=== PATIENT | female | born 1990 | race African-American/Black ===

== ENCOUNTER 2020-08-05 19:24 | Emergency (ER) | payer OTHER ==
[2020-08-05 19:39] VITALS: BP 110/71; PULSE 76; TEMP 97; BMI 34.4
--- OUTSIDE RECORDS SUMMARY | 2020-08-05 19:52 | XMS ---
:1990 Author Organization [facility] Support Name Relationship Address Phone [address] [place] [address] KOKI DANIEL, AGUSTÍN FATHER [address] [phone] [place] [address] Re-disclosure Warning The records that you are about to access may contain information from federally- assisted alcohol or drug abuse programs. If such information is present, then the following federally mandated warning applies: This information has been disclosed to you from records protected by federal confidentiality rules (42 CFR part 2). The federal rules prohibit you from making any further disclosure of this information unless further disclosure is expressly permitted by the written consent of the person to whom it pertains or as otherwise permitted by 42 CFR part 2. A general authorization for the release of medical or other information is NOT sufficient for this purpose. The Federal rules restrict any use of the information to criminally investigate or prosecute any alcohol or drug abuse patient.The records that you are about to access may contain highly sensitive health information, the redisclosure of which is protected by Article 27-F of the [facility] Public Health law. If you continue you may haveaccess to information: Regarding HIV / AIDS; Provided by facilities licensed or operated by the [facility] Office of Mental Health; or Provided by the [facility] Office for People With Developmental Disabilities. If such information is present, then the following [facility] mandated warning applies: This information has been disclosed to you from confidential records which are protected by state law. State law prohibits you from making any further disclosure of this information without the specific written consent of the person to whom it pertains, or as otherwise permitted by law. Any unauthorized further disclosure in violation of state law may result in a fine or fpc sentence or both. A general authorization for the release of medical or other information is NOT sufficient authorization for further disclosure. Insurance Providers Payer name Policy type Policy ID Covered Covered constitution party's Policy P eduard / Coverage constitution party ID relationship to [employer] ormation type [employer] [id number]
[2020-08-05] MEDS ORDERED: ACETAMINOPHEN 1000 MG/100 ML VIAL (NON FORMULARY) IVPB ONE (20:33)
[2020-08-05] MEDS ORDERED: SODIUM CHLORIDE 1,000 ML IV STA (20:33)
[2020-08-05] MEDS ORDERED: ONDANSETRON 4 MG/2 ML VIAL IVPUSH ONE ×2 (20:33→22:46)
--- NOTE | 2020-08-05 20:40 | PDOC ---
History of Present Illness - General Chief Complaint: Pain Stated Complaint: ABDOMINAL PAIN Time Seen by Provider: 08/05/20 19:57 History Source: Patient Exam Limitations: No Limitations - History of Present Illness Travel History: No Initial Comments: 08/05/20 20:38 HISTORY OF PRESENT ILLNESS: 30-year-old female denies medical history presents emergency department for evaluation of left lower quadrant pain over the past 3 days. She reports the pain worsens with urination and radiates to her lower back. Patient was concerned for a urinary tract infection she went to urgent care today was told that her urine was not suggestive of an infection and was referred to the emergency department to rule out diverticulitis. Patient reports her last bowel movement was earlier today and it was a formed brown stool without any blood. Patient reports she did have blood-streaked diarrhea 3 days ago but has since had normal bowel movements. No recent travel or sick contacts. PAST MEDICAL HISTORY: Denies past medical history SURGICAL HISTORY: Denies ALLERGIES: No known drug allergies REVIEW OF SYSTEMS General/Constitutional: Denies fever or chills. Denies weakness, weight change. HEENT: Denies change in vision. Denies ear pain or discharge. Denies sore throat. Cardiovascular: Denies chest pain or shortness of breath. Respiratory: Denies cough, wheezing, or hemoptysis. Gastrointestinal: See HPI Genitourinary: Denies dysuria, frequency, or change in urination. Musculoskeletal: Denies joint or muscle swelling or pain. Denies neck or back pain. Skin and breasts: Denies rash or easy bruising. Neurologic: Denies headache, vertigo, loss of consciousness, or loss of sensation. Psychiatric: Denies depression or anxiety. Endocrine: Denies increased thirst. Denies abnormal weight change. Hematologic/Lymphatic: Denies anemia, easy bleeding, or history of blood clots. Allergic/Immunologic: Denies hives or skin allergy. Denies latex allergy. PHYSICAL EXAM General Appearance: Well-appearing, appropriately dressed. No apparent distress, no intoxication. Respiratory/Chest: Lungs CTAB. No shortness of breath, chest tenderness, respiratory distress, accessory muscle use. No crackles, rales, rhonchi, stridor, wheezing, dullness Cardiovascular: RRR. S1, S2. No JVD, murmur, bradycardia, tachycardia. Vascular Pulses: Dorsalis-Pedis (R): 2+, Dorsalis-Pedis (L): 2+ Gastrointestinal/Abdominal: Normal bowel sounds. Abdomen soft, non-distended. Left lower quadrant and left upper quadrant tenderness with guarding and without rebound tenderness. No organomegaly, pulsatile mass, hernia, hepatomegaly, splenomegaly. Lymphatic: No adenopathy, tenderness. Musculoskeletal/Extremities: Normal inspection. No CVA tenderness. No tenderness to extremities, pedal edema, swelling, erythema or deformity. Past History - Medical History Allergies/Adverse Reactions: Allergies Allergy/AdvReac Type Severity Reaction Status Date / Time No Known Allergies Allergy Verified 08/05/20 19:39 Home Medications: Ambulatory Orders NK [No Known Home Medication] 08/05/20 COPD: No - Reproductive History Is Patient Now?: No - Psycho-Social/Smoking History Smoking History: Never smoked *Physical Exam - Vital Signs Last Vital Signs Temp Pulse Resp BP Pulse Ox 97 F L 76 18 110/71 98 08/05/20 19:35 08/05/20 19:35 08/05/20 19:35 08/05/20 19:35 08/05/20 19:35 - Physical Exam Female Pelvic Exam: positive: normal external exam, cervical os closed, normal adnexa, other (IUD noted to be partially removed and displaced on visual inspection.). negative: CMT, discharge, Bartholin mass, adnexal tenderness ED Treatment Course - LABORATORY CBC & Chemistry Diagram: 08/05/20 20:40 08/05/20 20:40 - RADIOLOGY Radiology Studies Ordered: Category Date Time Status ABDOMEN & PELVIS CT WITH CONTR [CT] Stat CT Scan 08/05/20 20:34 Ordered Medical Decision Making - Medical Decision Making 08/05/20 20:40 A/P: 30-year-old woman with left lower quadrant pain for the past 3 days Physical exam is concerning for diverticulitis. Labs Urine Tylenol 1 g IV Zofran [address] of the abdomen and pelvis with IV contrast Reassess 08/05/20 23:49 CT scan is read by imaging on-call: Lung bases are unremarkable. No pleural effusions. The liver, gallbladder, pancreas, adrenal glands and spleen are unremarkable. No renal or urinary calculi. No AAA No evidence for diverticulitis, appendicitis, small bowel obstruction, free fluid or free air. Intrauterine device which appears to be rotated and low in position partially extended out of the cervix. IUD retrieval- performed with GREG Lennon present as investor relations associate. IUD removed without incident. Discharge home with [facility] follow-up for maintenance of contraception. I discussed the physical exam findings, ancillary test results and final diagnoses with the patient. I answered all of the patient's questions. The patient was satisfied with the care received and felt comfortable with the discharge plan and treatment plan. The patient will call their primary care physician within 24 hours to arrange follow-up and will return to the Emergency Department with any new, persistent or worsening symptoms. Portions of this note have been documented using voice recognition software. As a result, errors may occur in the business risk analyst process. Effort has been made to correct all grammatical and business risk analyst error, but some may have been missed which may produce sporadic inaccurate business risk analyst or nonsensical phrases. 08/06/20 00:02 Discharge - Discharge Information Problems reviewed: Yes Clinical Impression/Diagnosis: Intrauterine device (IUD) migration Qualifiers: Encounter type: initial encounter Qualified Code(s): T83.32XA - Displacement of intrauterine contraceptive device, initial encounter Condition: Stable Disposition: HOME - Admission No - Follow up/Referral - Patient Discharge Instructions Patient Printed Discharge Instructions: DI for Intrauterine Device Removal Additional Instructions: It is normal to expect some bleeding for the next few days. You should avoid sexual intercourse as you may become until you have a new IUD placed. You should follow-up with your DRUG ABUSE TREATMENT SPECIALIST for management of contraception Return to the ER for any new or worsening symptoms including vaginal bleeding that saturates more than 2 pads per hour. Thank you very much for choosing us provide your emergent healthcare needs. - Post Discharge Activity
[2020-08-05] MEDS ORDERED: ACETAMINOPHEN INJECTION 100 ML IVPB ONE (20:45)
[2020-08-05 21:02] LABS: BASO % 0.8 % (0-2.0); EOS % 3.2 % (0-4.5); HEMATOCRIT 39.2 % (32.4-45.2); HEMOGLOBIN 13.2 GM/dL (10.7-15.3); LYMPH % 51.5 % (8-40); MCH 29.7 pg (25.7-33.7); MCHC 33.7 g/dl (32.0-36.0); MEAN PLT VOLUME 6.7 fl (7.5-11.1); MONO % 6.3 % (3.8-10.2); NEUT % 38.2 % (42.8-82.8); PLATELET COUNT 339 K/MM3 (134-434); RBC 4.46 M/mm3 (3.60-5.2); RDW 13.6 % (11.6-15.6); WHITE BLOOD COUNT 7.6 K/mm3 (4.0-10.0)
[2020-08-05 21:04] LABS: URINE APPEARANCE CLEAR; URINE BILIRUBIN NEGATIVE (NEGATIVE); URINE COLOR YELLOW; URINE GLUCOSE (UA) NEGATIVE (NEGATIVE); URINE KETONE NEGATIVE (NEGATIVE); URINE LEUK ESTERASE NEGATIVE (NEGATIVE); URINE NITRITE NEGATIVE (NEGATIVE); URINE PROTEIN NEGATIVE (NEGATIVE); URINE UROBILINOGEN 0.2 mg/dL (0.2-1.0)
[2020-08-05 21:07] LABS: HCG,QUALITATIVE URINE Negative
[2020-08-05 21:37] LABS: ALBUMIN 3.9 g/dl (3.4-5.0); BILIRUBIN,TOTAL 0.2 mg/dL (0.2-1); BLOOD UREA NITROGEN 18.2 mg/dL (7-18); CALCIUM 9.2 mg/dL (8.5-10.1); CREATININE 1.2 mg/dL (0.55-1.3); POTASSIUM 4.1 mmol/L (3.5-5.1); TOT PROT 8.1 g/dl (6.4-8.2)
== END 2020-08-06 00:10 | disposition home or self-care (01) ==
LOC: JER 19:24
PROC: 3E0333Z Introduction of Anti-inflammatory into Peripheral Vein, Percutaneous Approach (ICD-10-PCS; principal; 2020-08-05)
PROC: 3E033GC Introduction of Other Therapeutic Substance into Peripheral Vein, Percutaneous Approach (ICD-10-PCS; 2020-08-05)
PROC: 3E0337Z Introduction of Electrolytic and Water Balance Substance into Peripheral Vein, Percutaneous Approach (ICD-10-PCS; 2020-08-05)
DX: T83.32XA Displacement of intrauterine contraceptive device, initial encounter (principal)
CPT/HCPCS: 36415; 74177-TC; 80053; 81003; 83690; 84703; 85025; 87086; 99285-25; J0131; Q9967

== ENCOUNTER 2021-03-01 02:50 | Emergency (ER) | payer OTHER ==
[2021-03-01 03:22] VITALS: BMI 36.1
[2021-03-01] MEDS ORDERED: SODIUM CHLORIDE 1,000 ML IV STA (03:42)
[2021-03-01] MEDS ORDERED: ACETAMINOPHEN 1000 MG/100 ML VIAL (NON FORMULARY) IVPB ONE (03:42)
[2021-03-01] MEDS ORDERED: ACETAMINOPHEN INJECTION 100 ML IVPB ONE (04:12)
[2021-03-01 04:23] LABS: BASO % 0.4 % (0-2.0); EOS % 1.1 % (0-4.5); HEMOGLOBIN 13.7 GM/dL (10.7-15.3); LYMPH % 29.2 % (8-40); MCH 28.6 pg (25.7-33.7); MCHC 33.3 g/dl (32.0-36.0); MEAN CELL VOLUME 85.9 fl (80-96); MEAN PLT VOLUME 6.9 fl (7.5-11.1); MONO % 5.4 % (3.8-10.2); NEUT % 63.9 % (42.8-82.8); PLATELET COUNT 380 K/MM3 (134-434); RBC 4.78 M/mm3 (3.60-5.2); RDW 15.2 % (11.6-15.6); WHITE BLOOD COUNT 8.7 K/mm3 (4.0-10.0)
[2021-03-01 04:45] LABS: CREATININE 1.6 mg/dL (0.55-1.3); HCG,QUALITATIVE URINE Negative
[2021-03-01 04:46] LABS: BILIRUBIN,TOTAL 0.3 mg/dL (0.2-1); TOT PROT 8.5 g/dl (6.4-8.2)
[2021-03-01 04:49] LABS: EPI CELLS 15 /uL (0-25.1); HYALINE CASTS 1 /uL (0-3.1); URINE APPEARANCE CLOUDY; URINE BILIRUBIN NEGATIVE (NEGATIVE); URINE COLOR YELLOW; URINE GLUCOSE (UA) NEGATIVE (NEGATIVE); URINE KETONE TRACE (NEGATIVE); URINE LEUK ESTERASE NEGATIVE (NEGATIVE); URINE NITRITE NEGATIVE (NEGATIVE); URINE PROTEIN NEGATIVE (NEGATIVE); URINE RBC 36 /uL (0-23.9); URINE UROBILINOGEN 0.2 mg/dL (0.2-1.0); URINE WBC 10 /uL (0-25.8)
[2021-03-01] MEDS ORDERED: KETOROLAC TROMETHAMINE 15 MG/ML VIAL IVPUSH ONE (04:51)
[2021-03-01] MEDS ORDERED: morphine CARPU-JECT 4 MG/1 ML DISP.SYRIN IVPUSH ONE (04:51)
[2021-03-01 05:53] LABS: URINE BACTERIA NONE SEEN /uL (0-1359)
[2021-03-01 06:54] VITALS: TEMP 98.7
[2021-03-01 10:41] VITALS: BP 115/71; PULSE 62
== END 2021-03-01 10:15 | disposition home or self-care (01) ==
LOC: JER 02:50
PROC: 3E0333Z Introduction of Anti-inflammatory into Peripheral Vein, Percutaneous Approach (ICD-10-PCS; principal; 2021-03-01)
PROC: 3E033NZ Introduction of Analgesics, Hypnotics, Sedatives into Peripheral Vein, Percutaneous Approach (ICD-10-PCS; 2021-03-01)
PROC: 3E0337Z Introduction of Electrolytic and Water Balance Substance into Peripheral Vein, Percutaneous Approach (ICD-10-PCS; 2021-03-01)
DX: R10.32 Left lower quadrant pain (principal)
CPT/HCPCS: 36415; 74176-TC; 76830-TC; 80053; 81003; 83690; 84703; 85025; 87086; 99285-25; J0131